=== PATIENT | male | born 1975 | race Caucasian/White ===

== ENCOUNTER 2018-08-09 20:15 | Inpatient (IN) | payer OTHER ==
[~2018-08-09] VITALS: Ht 177.8 cm; Wt 103.5 kg
[2018-08-09 20:16] VITALS: BP 162/88
[2018-08-09] MEDS ORDERED: NEURONTIN600 MG PO (20:24)
[2018-08-09 20:50] LABS: BASOPHILS 0.9 % (0.0-2.0); EOSINOPHILS 2.8 % (0.0-3.0); HEMATOCRIT 43.7 % (42.0-52.0); HEMOGLOBIN 14.7 gm/dL (14.0-18.0); LYMPHOCYTES 28.6 % (24.0-44.0); MCHC 33.7 g/dL (28.0-37.0); MCV 83.2 fL (80.0-100.0); MONOCYTES 5.6 % (1.0-8.0); PLATELET COUNT 371 thou/uL (150-400); POLYS 62.1 % (36.0-66.0); RBC 5.26 mil/uL (4.50-6.00); RDW 15.2 % (10.5-14.5); WBC 11.2 thou/uL (4.0-11.0)
[2018-08-09 20:55] LABS: CALCIUM 8.9 mg/dL (8.5-10.1); CREATININE 0.9 mg/dL (0.7-1.3)
[2018-08-09 20:57] LABS: POTASSIUM 2.9 mmol/L (3.5-5.1)
[2018-08-09 21:01] LABS: ALBUMIN 3.7 g/dL (3.4-5.0); MAGNESIUM 1.3 mg/dL (1.8-2.4); TOTAL BILIRUBIN 0.5 mg/dL (<0.1-1.0); TOTAL PROTEIN 7.4 g/dL (6.4-8.2)
--- NOTE | 2018-08-09 21:10 | NUR ---
REPORT TO AYDIN
[2018-08-10] VITALS (8 sets, daily range): BP systolic 132–179; BP diastolic 75–100
[2018-08-10] MEDS ORDERED: FLEXERIL PO (01:41)
[2018-08-10] MEDS ORDERED: CYMBALTA60 MG PO (01:41)
--- NOTE | 2018-08-10 03:56 | NUR ---
RECEIVED REPORT FROM ER NURSE. PT ARRIVED TO ROOM 353 AROUND 0130. ADMISSION HX AND ASSESSMENT COMPLETED CHARTED. PT IS ABLE TO ANSWER MOST ORIENTATION QUESTIONS BUT IS FORGETFUL. C/O CHRONIC BACK PAIN. LORAZEPAM GIVEN FOR ETOH W/D SYMPTOMS. PT SLEEPING AT THIS TIME. RESP EVEN AND UNLABORED. FALL PRECAUTIONS IN PLACE. PROGRESSING SLOWLY TOWARD POC GOALS. WILL CONTINUE TO MONITOR FURTHER.
[2018-08-10 09:57] LABS: HEMATOCRIT 39.1 % (42.0-52.0); HEMOGLOBIN 12.9 gm/dL (14.0-18.0)
[2018-08-10 10:09] LABS: CALCIUM 8.2 mg/dL (8.5-10.1); CREATININE 0.9 mg/dL (0.7-1.3); MAGNESIUM 1.5 mg/dL (1.8-2.4)
--- NOTE | 2018-08-10 10:34 | NUR ---
PATIENT CONT TO SLEEP AT THIS TIME. HE DID WAKE UP TO EAT BREAKFAST AND FELL BACK ASLEEP. HE DENIES PAIN WHEN ASKED. HE IS ON ALCOHOL WITHDRAWAL PROTOCOL SO FAR HIS CIWA HAS BEEN LESS THAN SEVEN. ENCOURAGED TO DRINK. NO NAUSEA OR VOMITING NOTED. WILL CONT WITH PLAN OF CARE.
--- NOTE | 2018-08-10 14:53 | NUR ---
ASSESSMENT: CM REVIEWED CHART AND MET WITH PATIENT AT THE BEDSIDE. PT WAS ADMITTED WITH ETOH ABUSE. PT REPORTS THAT HE HAS BEEN STAYING IN HIS VEHICLE THE PAST COUPLE DAYS AFTER HIS GIRLFRIEND HAD KICKED HIM OUT OF THE TOWNHOUSE HE WAS STAYING IN WITH HER. PT REPORTS HIS CAR IS CURRENTLY AT THE [facility] [address] OFF [address]. PT REPORTS THAT HE HAS NOT SPOKEN WITH HIS GIRLFRIEND AND IS NOT INTERESTED IN TALKING TO HER AT THIS TIME. PT REPORTS HE AMBULATES USING A CANE AT TIMES WELL A WALKER. PT REPORTS HE RECEIVES A DISABILITY CHECK. CM DISCUSSED ROLE. CM ASKED IF PATIENT HAD EVER ATTENDED AA OR INPATIENT REHAB/DETOX. PT REPORTS HE HAD BEEN TO [place] YEARS AGO TO DETOX AND REPORTS GOING TO AA ONCE BUT STATES IT MADE HIM WANT TO DRINK MORE. CM DISCUSSED ROLE. PATIENT STATES HE IS UNSURE HE WANTS TO ATTEND REHAB BUT WILL LOOK AT RESOURCES. CM PROVIDED PATIENT WITH ETOH RESOURCE SHEET INCLUDING AA. CM ALSO PROVIDED PATIENT WITH DETOX CENTERS AND CONTACT INFORMATION FOR [facility]. CM WILL CONTINUE TO FOLLOW TO ASSIST NEEDED.
--- NOTE | 2018-08-11 02:07 | NUR ---
ASSUMED CARE OF PATIENT AT 1900. VSS, AFEBRILE. ANXIOUS AT TIMES, TREATED WITH ATIVAN PER CIWAA SCORE. APPETITE INCREASING, ABLE TO EAT 2 BOX LUNCHES, SEVERAL PUDDINGS AND JUICE OVERNIGHT. DENIES N/V. UP TO THE BATHROOM TO VOID. C/O CHRONIC BACK PAIN. NO OTHER S/S OF DISTRESS. WILL CONTINUE TO ASSESS AND TREAT FOR ALCOHOL WITHDRAWAL SYMPTOMS.
[2018-08-11 03:14] VITALS: BP 139/85
[2018-08-11 07:49] VITALS: BP 146/85
[2018-08-11] MEDS ORDERED: TRAMADOL 50 MG50 MG PO (09:25)
[2018-08-11 12:03] VITALS: BP 177/92
[2018-08-11] MEDS ORDERED: PRILOSEC 20 MG20 MG PO (14:12)
--- NOTE | 2018-08-11 16:16 | NUR ---
ON-GOING ASSESSMENT: CM REVIEWED CHART AND MET WITH PATIENT AT THE BEDSIDE. PT HAS ORDERS TO DISCHARGE. PT STATING HE HAS BEEN TALKING SOME WITH HIS GIRLFRIEND BUT SHE STOPPED RESPONDING TO HIM SO HE IS STILL UNCLEAR IF HE CAN GO BACK THERE. PT STATES HIS CAR IS STILL OUT OF GAS AT [facility] AND HE HAS NOWHERE TO STAY. PT REPORTS HIS FRIEND THAT SAID HE COULD STAY WITH HIM LIVES IN [place]. PT STATING IF HE CAN STAY UNTIL TOMORROW HE WILL WORK ON FINDING A PLACE TO STAY AND WORK ON TRYING TO GET SOME GAS MONEY FOR HIS CAR. GIVEN THE TEMPERATURES OUTSIDE CM SPOKE WITH CM DIRECTOR WHO STATED PATIENT CAN LIKELY STAY UNTIL TOMORROW. CM NOTIFIED ATTENDING. CM WILL CONTINUE TO FOLLOW.
--- NOTE | 2018-08-11 18:01 | NUR ---
ASSUMED CARE AT SHIFT CHANGE. PT A/O X4, CALM COOPERATIVE ALL DAY. CIWA SCORE OF 0. PT SLEPT MOST OF THE DAY. UP WITH SBA TO BATHROOM, STEADY GAIT. C/O MILD DIZZINESS WITH STANDING, VSS. POTASSIUM REPLACED PER DR NATION ORDER. PT UPDATED ON POC TO D/C TOMORROW INSTEAD OF TONIGHT, PT PLEASED WITH THIS PLAN. ASSESSMENTS PER CHART. WILL CONT TO MONITOR AND FOLLOW POC.
[2018-08-11 19:15] VITALS: BP 171/92
[2018-08-12 00:06] VITALS: BP 125/73
[2018-08-12 04:20] VITALS: BP 140/93
--- NOTE | 2018-08-12 05:01 | NUR ---
SLEPT MOST OF SHIFT. UP TO BATHROOM WITH STANDBY ASSIST. CIWA SCORE REMAINS 0. WORKING ON GOALS AND PLAN OF CARE FOR NOC. PROGRESSING TOWARDS DISCHARGE GOALS. CM ASSISTING WITH POSSIBLE ASSISTANCE WITH FINDING A PLACE TO LIVE. STILL HAS SOME DIZZINESS WHEN UP. CONTINUE TO ASSES.
[2018-08-12 05:22] VITALS: BP 140/93
[2018-08-12 07:26] VITALS: BP 157/104
--- NOTE | 2018-08-12 14:13 | NUR ---
PATIENT WILL DISCHARGED THIS PM TO HOME. HE HAS SLEPT MOST OF THE DAY. HE DOES HAVE PAIN TO HIS BACK WITH MOVEMENT BUT PAIN SUBSIDES ONCE HE ASSUMES A POSITION.
[2018-08-12 15:09] VITALS: BP 157/104
--- NOTE | 2018-08-12 15:21 | NUR ---
on-going assessment: CM REVIEWED CHART AND MET WITH PATIENT. PATIENT STATES HE IS STILL NOT 100 PERCENT POSITIVE HE CAN GO BACK TO HIS GIRLFRIENDS HOUSE. CM DISCUSSED HE HAS ORDERS TO DISCHARGE AND IF HE CANT GO TO HIS GIRLFRIEND CM COULD PROVIDE PATIENT WITH [facility] HOT[facility] AND CAB AND HE STATES THAT HE WILL LIKELY STSAY WITH HIS GIRLFRIEND IF NOT HE CAN STAY WITH HIS BROTHER. PT STATES HE JUST NEEDS A RIDE TO GET TO HIS CAR AT [facility] WHICH IS OFF OF [address] AND [address] AND STATES HE DOES NOT HAVE ALOT OF GAS. CM SPOKE WITH CM DIRECTOR AND PROVIDED PATIENT WITH A 10 DOLLAR GAS CARD FOR PATIENT SO HE CAN GET TO HIS DESTINATION ONCE HE GETS TO HIS CAR. CM FILLED OUT CAB VOUCHER TO GET PATIENT TO [facility] WHERE HIS CAR IS. CM NOTIFIED BEDSIDE RN WHO IS HAVING SOMEONE WALK PATIENT TO SECURITY SO A CAB CAN BE CALLED. CM ALSO PROVIDED PATIENT WITH HOUSING ASSISTANCE INFORMATION WELL CRISIS HOTLINE INFORMATION.
== END 2018-08-12 15:27 | disposition home or self-care (01) | DRG 641 ==
LOC: ER 20:15 → EROBS 08-10 00:57 → 3W 08-10 00:57
PROVIDERS: Emergency Medicine; Nurse Practitioner Acute Care; ADMIT Internal Medicine
DX: E87.6 Hypokalemia (principal); J96.10 Chronic respiratory failure, unspecified whether with hypoxia or hypercapnia; F10.129 Alcohol abuse with intoxication, unspecified; E83.42 Hypomagnesemia; J44.9 Chronic obstructive pulmonary disease, unspecified; G89.29 Other chronic pain; M54.9 Dorsalgia, unspecified; F17.210 Nicotine dependence, cigarettes, uncomplicated; J45.909 Unspecified asthma, uncomplicated; F32.9 Major depressive disorder, single episode, unspecified; Z87.81 Personal history of (healed) traumatic fracture; Z23 Encounter for immunization
CPT/HCPCS: 10879

== ENCOUNTER 2018-08-17 15:27 | Inpatient (IN) | payer OTHER ==
[~2018-08-17] VITALS: Ht 177.8 cm; Wt 102.1 kg
[~2018-08-17 15:27] MED LIST: CYMBALTA60 MG PO; FLEXERIL PO; NEURONTIN600 MG PO; PRILOSEC 20 MG20 MG PO; TRAMADOL 50 MG50 MG PO
[2018-08-17 16:05] LABS: URINE BILIRUBIN NEGATIVE (Negative); URINE BLOOD TRACE (Negative); URINE CLARITY CLEAR; URINE COLOR YELLOW; URINE GLUCOSE-RANDOM* NEGATIVE (Negative); URINE KETONES NEGATIVE (Negative); URINE LEUKOCYTES NEGATIVE (Negative); URINE NITRITE NEGATIVE (Negative); URINE PROTEIN (DIPSTICK) 2+ (Negative); URINE UROBILINOGEN 0.2 E.U./dl (0.2-1.0)
[2018-08-17 16:05] LABS: EOSINOPHILS 1.8 % (0.0-3.0); HEMATOCRIT 44.5 % (42.0-52.0); HEMOGLOBIN 15.4 gm/dL (14.0-18.0); LYMPHOCYTES 24.2 % (24.0-44.0); MCH 28.5 pg (26.0-34.0); MCHC 34.7 g/dL (28.0-37.0); MCV 82.2 fL (80.0-100.0); MONOCYTES 7.6 % (1.0-8.0); PLATELET COUNT 325 thou/uL (150-400); POLYS 64.4 % (36.0-66.0); RBC 5.42 mil/uL (4.50-6.00); RDW 15.6 % (10.5-14.5); WBC 9.4 thou/uL (4.0-11.0)
[2018-08-17 16:10] LABS: CALCIUM 8.8 mg/dL (8.5-10.1); POTASSIUM 3.4 mmol/L (3.5-5.1)
[2018-08-17 16:13] LABS: BACTERIA 1-9 Few /HPF (None Seen); CASTS None Seen /LPF (None Seen); CRYSTALS None Seen /LPF (None Seen); SQUAMOUS None Seen /LPF (0-3); URINE RBC 0-2 Rare /HPF (0-2); URINE WBC None Seen /HPF (0-5)
[2018-08-17 16:14] LABS: AMP/METHAMP Negative (Negative); BARBITURATES Negative (Negative); BENZODIAZEPINES Negative (Negative); COCAINE Negative (Negative); METHADONE Negative (Negative); OPIATES Negative (Negative); PCP Negative (Negative)
[2018-08-17 16:14] LABS: ALBUMIN 4.1 g/dL (3.4-5.0); TOTAL BILIRUBIN 0.6 mg/dL (<0.1-1.0); TOTAL PROTEIN 7.8 g/dL (6.4-8.2)
[2018-08-17 20:04] VITALS: BP 152/96
[2018-08-17 20:10] VITALS: BP 152/96
[2018-08-17 20:40] VITALS: BP 179/104
[2018-08-17] MEDS ORDERED: NAPROSYN500 MG PO (20:41)
[2018-08-18] VITALS (8 sets, daily range): BP systolic 146–166; BP diastolic 95–111
--- NOTE | 2018-08-18 05:08 | NUR ---
PT WAS DC'D FROM [facility] ON THE Jul. PT RETURNED VIA ER FOR EOTH, ABDOMEN PAIN, N/V. FOLLOWING POC WITH CIWA'S AND FLUIDS. CIWA'S ARE 3-5. FIELD STICK PIV WAS REMOVED BY PT WHEN HE ROLLED OVER. REPLACED IN LFA. PT WAS PLACED ON 2L NC OXYGEN DUE TO DROPPING 02 ([phone]%) LEVELS WHEN HE SLEEPS. A FINGER PROBE WAS PLACED AND RUNS THROUGH TELE BOX DUE TO PT RECEIVING ATIVAN FOR CIWA SCORES. PT STATES HIS GIRLFRIEND CHEATED ON HIM AND FINALLY KICKED HIM OUT AND HE HAS BEEN LIVING IN HIS CAR. SINCE LAST ADMISSION PT STATES HE HAS BEEN LIVING IN A HOTEL AND DRINKING 1 PINT TO A 1/5TH OF VODKA PER DAY. HOURLY ROUNDING.
--- NOTE | 2018-08-18 11:29 | NUR ---
Nutrition: assess d/t consult for poor intake. Pt admitted for N/V and ETOH abuse. Pt was not very responsive during visit, had just woken up. Unable to obtain wt history. Pt is obese per BMI classification. Pt was admitted in July, wt appears stable over past 1-2 weeks. Will follow-up to obtain wt hx and PO intake. Otherwise, consider low risk.
--- NOTE | 2018-08-18 15:14 | NUR ---
ASSUMED PATIENT CARE AT 0715. A&OX4. CIWA PER PROTOCOL. PATIENT SLEEPING MOST OF THIS SHIFT. OFFERED PATIENT A SHOWER SEVERAL TIMES TODAY. PATIENT STATES THEY WILL SHOWER LATER. NO N/V NOTED. STAND BY ASSIST. SLIGHTLY UNSTEADY. BLOOD PRESSURES HAVE BEEN ELEVATED. CLONIDINE PRN ORDERED WITH PARAMETERS. PHYSICIAN AWARE. PATIENT STATES THEY HAVE BEEN LIVING OUT OF THEIR CAR OR IN A HOTEL BECUASE THEIR SIGNIFICANT OTHER KICKED THEM OUT. CM NEEDS TO SEE PATIENT.
[2018-08-18 23:09] LABS: MAGNESIUM 1.2 mg/dL (1.8-2.4)
--- NOTE | 2018-08-19 03:31 | NUR ---
ASSUMED PT CARE AROUND 1900. A&OX4. CIWA Q4H. LORAZEPAM GIVEN INDICATED PER CIWA PROTOCOL. PT C/O HEADACHE AND BACK PAIN. PT SLEPT MOST OF THE NIGHT. RESP EVEN AND UNLABORED. PT IS EASILY ARROUSABLE AND APPROPRIATELY MAKES NEEDS KNOWN. PT GIVEN BED BATH THIS SHIFT. VOIDS INDEPENDENTLY PER URINAL. IVF INFUSING PER ORDER. MAGNESIUM REPLACED PER ELECTROLYTE PROTOCOL. FALL PRECAUTIONS IN PLACE. PROGRESSING SLOWLY TOWARD POC GOALS. WILL CONTINUE TO MONITOR FURTHER.
[2018-08-19 03:59] VITALS: BP 179/113
[2018-08-19 06:13] VITALS: BP 160/112
[2018-08-19 07:24] VITALS: BP 146/93
[2018-08-19 13:41] VITALS: BP 137/94
--- NOTE | 2018-08-19 14:50 | NUR ---
INITIAL ASSESSMENT: Received consult for ETOH treatment facility options. LALY reviewed chart and spoke with nursing and attending physician. Pt was admitted due to ETOH intoxication. Pt was recently discharged from [facility] on 08/12. At that time, pt was provided with a [employer] gas card, as pt reported he may be living in his car and did not have any gas. LALY attempted to meet with pt at two different occasions today. Pt sleeping and not able to have conversation with SW. LALY will follow up with pt tomorrow to discuss possible treatment options if he is interested in treatment. LALY is following to assist as needed with discharge planning.
--- NOTE | 2018-08-19 15:23 | NUR ---
ASSUMED PATIENT CARE AT 0715. A&OX4. CIWA SCORES TODAY HAVE BEEN 6. BLOOD PRESSURES HAVE STILL BEEN ELEVATED, BUT BETTER THAN YESTERDAY. NIGHT TRANSPLANT REGISTERED NURSE STARTED PATIENT ON BLOOD PRESSURE MEDICATION DAILY AND ADDED PRN HYDRALAZINE. ATIVAN GIVEN ACCORDING TO CIWA SCORE. MAGNESIUM STILL LOW. IV MAG INFUSING PER PROTOCOL. ABLE TO MAKE NEEDS KNOWN. HOURLY ROUNDING TO CHECK NEEDS.
[2018-08-19 16:49] VITALS: BP 135/85
[2018-08-19 19:47] VITALS: BP 145/101
[2018-08-20] VITALS: BP 157/108
[2018-08-20 04:09] VITALS: BP 140/98
--- NOTE | 2018-08-20 06:19 | NUR ---
SLEPT PART OF SHIFT. UP WITH STANDBY ASSIST. ANXIOUS AT TIMES. ATIVAN GIVEN FOR CIWA SCORES NEEDED. WORKING ON GOALS AND PLAN OF CARE FOR NOC. PROGRESSING SLOWLY TOWARDS DISCHARGE GOALS. CONTINUE TO ASSES. MAINTAIN SAFE ENVIRONMENT.
[2018-08-20 07:39] VITALS: BP 130/83
[2018-08-20] MEDS ORDERED: LISINOPRIL10 MG PO (10:55)
[2018-08-20 11:04] VITALS: BP 130/83
--- NOTE | 2018-08-20 11:36 | NUR ---
ASSUMED PATIENT CARE AT 0715. A&OX4. COMPLAINTS OF CHRONIC BACK PAIN. CIWA THIS AM AT 3. PATIENT SLEEPING MOST OF THE MORNING. CM HAS TRIED TO DISCUSS DISCHARGE PLAN WITH PATIENT MULTIPLE TIMES. PATIENT EXPRESSES THAT THEY WANT TO QUIT DRINKING. PATIENT OK WITH DISCHARGE. THEY ARE NOT SURE IF THEY HAVE A RIDE AND EXPRESSED A POSSIBLE NEED FOR A CAB.
--- NOTE | 2018-08-20 14:25 | NUR ---
DISCHARGE NOTE: SW reviewed chart and spoke with nursing and attending physician. Pt is medically stable for discharge home today. SW met with pt at bedside to discuss discharge plan. Pt states he has a place to stay [address]. Pt was not willing to tell SW where he would be staying. SW discussed options for providing pt with info regarding ETOH treatment facilities. Pt declines offer and states he does not want any treatment at this time. Pt was discharged and left the hospital. No additional SW needs identified at this time, but is available to assist should needs arise.
== END 2018-08-20 13:38 | disposition home or self-care (01) | DRG 640 ==
LOC: ER 15:27 → 3W 19:14 → EROBS 19:14 → 3W 20:10
PROVIDERS: Physician Assistant; ADMIT Internal Medicine
DX: E87.6 Hypokalemia (principal); G93.41 Metabolic encephalopathy; J96.10 Chronic respiratory failure, unspecified whether with hypoxia or hypercapnia; F10.129 Alcohol abuse with intoxication, unspecified; G89.29 Other chronic pain; M54.9 Dorsalgia, unspecified; J44.9 Chronic obstructive pulmonary disease, unspecified; R00.0 Tachycardia, unspecified; F17.210 Nicotine dependence, cigarettes, uncomplicated; E83.42 Hypomagnesemia; G47.33 Obstructive sleep apnea (adult) (pediatric); M54.5 Low back pain; Z85.47 Personal history of malignant neoplasm of testis; Z87.81 Personal history of (healed) traumatic fracture; Z71.6 Tobacco abuse counseling
CPT/HCPCS: 10879